=== PATIENT | male | born 1940 | race African-American/Black ===

== ENCOUNTER 2025-05-27 17:33 | Emergency (ER) | payer BC, OTHER ==
[~2025-05-27] VITALS: Ht 172.7 cm; Wt 75.0 kg
[2025-05-27 17:50] VITALS: PULSE 77; RESP 15; O2SAT 99
--- NOTE | 2025-05-27 19:20 | ED.PDOC ---
HPI (NEURO) HPI Comments 85-year-old came to the emergency department from long-term with a lethargy Chief Complaint: General Weakness Time Seen by MD: 17:43 Reviewed Notes: Nurses Notes, Regional Clinical Director Notes, Medications Information Source: Patient, Relative (Grand father) Mode of Arrival: EMS Severity: Moderate Dizziness/Weakness Severity: Bedridden, Unable to do activities Headache Severity: None Timing: Days Duration: Since onset Weakness Location: Generalized Onset: At rest Circumstances: Spontaneous Symptoms: Weakness, Difficulty walking Before: Lethargic After: Normal Mentation History of: Anemia, DM, Electrolyte Imbalance, Hypertension Modifying factors: Nothing Associated Signs and Symptoms: Fever, Altered Mental Status, Weakness, None Past Medical History PAST MEDICAL HISTORY: Anemia, Arthritis, DM, ESRD, HTN Past Medical History (Other): Chronic back pain Surgical History (Other): Fistula for renal failure Family History Family History: Reviewed,noncontributory to illness, No family hx of Cancer, No family hx of DM, No family hx of Heart terri, No family hx of HTN, No family hx ofKidney terri, No family hx of Liver terri, No family hx of Lung terri, No family hx of Stroke Social History Smoker: Non-Smoker Alcohol: Denies ETOH Use Drugs: Denies Drug Use Constitutional: reports: fever, weakness; denies: chills, diaphoresis, fatigue, malaise, sweats, others EENTM: denies: blurred vision, double vision, ear bleeding, ear discharge, ear drainage, ear pain, ear ringing, eye pain, eye redness, hearing loss, mouth pain, mouth swelling, nasal discharge, nose bleeding, nose congestion, nose pain, photophobia, tearing, throat pain, throat swelling, voice changes, others Respiratory: denies: cough, hemoptysis, orthopnea, SOB at rest, shortness of breath, SOB with excertion, stridor, wheezing, others Cardiovascular: denies: chest pain, dizzy spells, diaphoresis, Dyspnea on exertion, edema, irregular heart beat, left arm pain, lightheadedness, palpitations, PND, syncope, others Gastrointestinal: denies: abdomen distended, abdominal pain, blood streaked bowels, constipated, diarrhea, dysphagia, difficulty swallowing, hematemesis, melena, nausea, poor appetite, poor fluid intake, rectal bleeding, rectal pain, vomiting, others Genitourinary: denies: burning, dysuria, flank pain, frequency, hematuria, incontinence, penile discharge, penile sore, pain, testicle pain, testicle sw elling, urgency, others Neurological: denies: dizziness, fainting, headache, left sided numbness, left sided weakness, numbness, paresthesia, pre-existing deficit, right sided numbness, right sided weakness, seizure, speech problems, tingling, tremors, weakness, others Musculoskeletal: reports: back pain; denies: gout, joint pain, joint swelling, muscle pain, muscle stiffness, neck pain, others Integumetry: denies: bruises, change in color, change in hair/nails, dryness, laceration, lesions, lumps, rash, wounds, others Allergic/Immunocompromised: denies: Difficulty Healing, Frequent Infections, Hives, Itching, others Hematologic/Lymphatic: reports: anemia Psychiatric: denies: anxiety, bipolar disorder, depression, hopeless, panic dis order, schizophrenia, sleepless, suicidal, others All Other Systems: Reviewed and Negative Physical Exam General Appearance: Moderate Distress, Other (Lethargic) HEENT: Normal ENT Inspection, Pharynx Normal, TMs Normal Neck: Full Range of Motion, Non-Tender, Normal, Normal Inspection Respiratory: Chest Non-Tender, Lungs Clear, No Accessory Muscle Use, No Respiratory Distress, Normal Breath Sounds Cardiovascular: No Edema, No JVD, No Murmur, No Gallop, Normal Peripheral Pulses, Regular Rate/Rhythm Breast Exam: Deferred Gastrointestinal: No Organomegaly, Non Tender, No Pulsatile Mass, Normal Bowel Sounds, Soft Genitalia: Deferred Pelvic: Deferred Rectal: Deferred Extremities: No calf tenderness, Normal capillary refill, Normal inspection, N ormal range of motion, No pedal edema, Other (Fistula left arm) Musculoskeletal : Location: Left Extremity Location: Foot Apperance: Tenderness: Moderate, Other (Ischemic pain) Neurologic: Depressed Affect, Motor Weakness Cerebellar Function: NOT DONE Reflexes: NOT DONE Skin: Dry, Normal Color, Warm Peripheral Pulses: 1+ carotid (R), 1+ carotid (L) Lymphatic: No Adenopathy Was a procedure done? Was a procedure done?: No Differential Diagnosis (SZ) Seizure: Hypocalcemia, Hypoglycemia, Hyponatremia CVA: Electrolyte Imbalance General Weakness: Anemia, Dehydration, Electrolyte imbalance, Renal failure, Other (Possible urosepsis) Headache: N/A X-Ray, Labs, Meds, VS Vital Signs Date Time Temp Pulse Resp B/P (MAP) Pulse Ox O2 Delivery O2 Flow Rate FiO2 05/27/25 21:57 15 100 Room Air* 0 21 05/27/25 21:56 152/63 05/27/25 18:03 77 05/27/25 17:50 99.8 77 15 153/57 (89) 99 99.8 05/27/25 17:50 77 15 99 Room Air* 0 21 05/27/25 17:41 98.4 84 18 144/87 99 98.4 Lab Test 05/27/25 21:02 05/27/25 20:35 05/27/25 19:37 Range/Units Stool for White Cells Pending Urine Color Colorless Yellow Urine Clarity Clear Clear Urine pH 5.0 5.0-9.0 Urine Specific [place] 1.009 1.001-1.035 Urine Protein Negative Negative Urine Ketones Negative Negative Urine Blood Negative Negative /uL Urine Nitrite Negative Negative Urine Bilirubin Negative Negative Urine Urobilinogen Normal Negative mg/dL Urine Leukocyte Esterase Negative Negative /uL Urine RBC 1 0 - 3 /hpf Urine Microscopic WBC 2 0-3 /HPF Urine Squamous Epithelial Cells Few <5 /hpf Urine Amorphous Crystals Few None Seen /hpf Urine Bacteria None seen None Seen /hpf Urine Hyaline Casts Few 0 - 2 /lpf Urine Glucose Normal Normal mg/dL White Blood Count 6.5 4.4-10.8 10^3/uL Red Blood Count 2.94 L 4.5-5.90 10^6/uL Hemoglobin 8.5 L 13.5-17.5 g/dL Hematocrit 25.7 L 41.0-53.0 % Mean Corpuscular Volume 87.5 80.0-100.0 fL Mean Corpuscular Hemoglobin 28.8 28.0-32.0 pg Mean Corpuscular Hemoglobin Concent 32.9 32.0-36.0 g/dL Red Cell Distribution Width 14.6 H 11.8-14.3 % Platelet Count 210 140-450 10^3/uL Mean Platelet Volume 7.5 6.9-10.8 fL Neutrophils (%) (Auto) 60.3 37.0-80.0 % Lymphocytes (%) (Auto) 26.6 10.0-50.0 % Monocytes (%) (Auto) 9.5 0.0-12.0 % Eosinophils (%) (Auto) 2.6 0.0-7.0 % Basophils (%) (Auto) 1.0 0.0-2.0 % Neutrophils # (Auto) 3.9 1.6-8.6 10 ^3/uL Lymphocytes # (Auto) 1.7 0.4-5.4 10 ^3/uL Monocytes # (Auto) 0.6 0-1.3 10 ^3/uL Eosinophils # (Auto) 0.2 0-0.8 10 ^3/uL Basophils # (Auto) 0.1 0-0.2 10 ^3/uL Nucleated Red Blood Cells 0.1 % Sodium Level 141 136-145 mmol/L Potassium Level 5.8 *H 3.5-5.1 mmol/L Chloride Level 116 H 98-107 mmol/L Carbon Dioxide Level 13 L 20-31 mmol/L Anion Gap 12 5-15 Blood Urea Nitrogen 99 *H 9-23 mg/dL Creatinine 8.34 H 0.700-1.30 mg/dL Glomerular Filtration Rate Calc 6 >90 mL/min BUN/Creatinine Ratio 11.9 10.0-20.0 Serum Glucose 79 74-106 mg/dL Lactic Acid Level 0.6 0.4-2.0 mmol/L Calcium Level 8.5 L 8.7-10.4 mg/dL Magnesium Level 1.3 L 1.6-2.6 mg/dL Total Bilirubin 0.3 0.2-1.0 mg/dL Aspartate Amino Transferase (AST) < 8 L 13-40 U/L Alanine Aminotransferase (ALT) < 9 7-40 U/L Alkaline Phosphatase 70 46-116 U/L Troponin I High Sensitivity 29 </=54 ng/L Total Protein 6.2 5.7-8.2 g/dL Albumin 3.6 3.2-4.8 g/dL Plasma/Serum Blood Alcohol < 3.0 <10 mg/dL Current Medications Medications (Trade) Dose Ordered Sig/Naif Route Start Time Stop Time Status Last Admin Sodium Chloride 500 ml @ 500 mls/hr Q1H ONCE IVB 05/27/25 19:15 05/27/25 20:14 DC 05/27/25 19:22 Sodium Chloride 1,000 ml @ 150 mls/hr Q6H40M ONCE IV 05/27/25 19:15 05/28/25 01:54 05/27/25 19:22 Magnesium Sulfate/ Dextrose 100 ml @ 100 mls/hr Q1H IV 05/27/25 20:45 05/27/25 22:44 05/27/25 21:29 Calcium Gluconate/ Sodium Chloride 50 ml @ 100 mls/hr ONCE ONCE IV 05/27/25 21:15 05/27/25 21:44 DC 05/27/25 21:28 Sodium Bicarbonate 50 ml ONCE ONCE IV 05/27/25 21:15 05/27/25 21:16 DC 05/27/25 21:29 Sodium Bicarbonate 50 ml ONCE ONCE IV 05/27/25 21:45 05/27/25 21:50 DC 05/27/25 21:54 Zirconium Oxide (Lokelma) 10 gm ONCE ONCE PO 05/27/25 21:45 05/27/25 21:50 DC 05/27/25 21:54 Albuterol (Ventolin Medneb) 5 mg ONCE ONCE NEB 05/27/25 21:45 05/27/25 21:50 DC 05/27/25 21:57 Furosemide (Lasix Injection) 80 mg ONCE ONCE IV 05/27/25 21:45 05/27/25 21:50 DC 05/27/25 21:56 X-Ray, Labs, Meds, VS Comment Course in the emergency department eventful patient came in because of ge neralized weakness and lethargic Chest x-ray shows pulmonary vascular congestion EKG shows normal sinus rhythm 77 CBC 6500 with 60% neutrophils H&H 8.5 and 25.7 Blood alcohol less than three CMP potassium 5.8 BUN 99 creatinine 8.34 and GFR at six blood sugar 79 Lactic acid 0.6 Magnesium 1.3 Troponin 29 Patient will need dialysis admission Dr. Torres will admit Time of 1ST Reevaluation: 17:45 Reevaluation 1ST: Unchanged Time of 2ND Reevaluation: 21:36 Reevaluation 2ND: Unchanged Patient Education/Counseling: Diagnosis, Prognosis Family Education/Counseling: Diagnosis, Prognosis, Other (Daughter at bedside) Departure 1 Departure Time of Disposition: 20:37 Impression: Primary Impression: Acute renal failure Qualified Codes: N17.8 - Other acute kidney failure Additional Impressions: Anemia in chronic kidney disease Hyperkalemia Hypomagnesemia with secondary hypocalcemia Disposition: ADMITTED INPATIENT Admit to: Tele Condition: Guarded Critical Care Note Critical Care Time?: No Stability Stability form required: Yes Heart Score Heart Score: Heart Score Response (Comments) Value History N/A 0 EKG Normal 0 Age >65 2 Risk Factors >3 or Hx ASHD 2 Troponin Normal limit 0 Total 4 RUTH STODDARD MD May 27, 2025 19:20
[2025-05-27] MEDS: SODIUM CHLORIDE 0.9% 500 ML IVB ONE (19:22)
[2025-05-27] MEDS: SODIUM CHLORIDE 0.9% 1,000 ML IV ONE (19:22)
--- NOTE | 2025-05-27 19:32 | DVH ---
CHEST RADIOGRAPH Indication: Fever Technique: Single frontal view of the chest was obtained COMPARISON: None FINDINGS: Lines and Tubes: None Lungs: Increased interstitial prominence. This may represent pulmonary vascular congestion and/or vir al pneumonia. Pleura: No effusion. No pneumothorax. Cardiomediastinal contours: Unremarkable Bones: Unremarkable IMPRESSION: Increased interstitial prominence. This may represent pulmonary vascular congestion and/or viral pneumonia.
[2025-05-27 20:04] LABS: Albumin 3.6 g/dL (3.2-4.8); Alkaline Phosphatase 70 U/L (46-116); Anion Gap 12 (5-15); BUN/Creatinine Ratio 11.9 (10.0-20.0); Bilirubin, Total 0.3 mg/dL (0.2-1.0); Glucose 79 mg/dL (74-106); Sodium 141 mmol/L (136-145); Total Protein 6.2 g/dL (5.7-8.2)
[2025-05-27 20:07] LABS: Carbon Dioxide 13 mmol/L (20-31); Chloride 116 mmol/L (98-107)
[2025-05-27 20:08] LABS: Alanine Aminotransferase < 9 U/L (7-40); Calcium 8.5 mg/dL (8.7-10.4); Magnesium 1.3 mg/dL (1.6-2.6)
[2025-05-27 20:09] LABS: Hematocrit 25.7 % (41.0-53.0); Hemoglobin 8.5 g/dL (13.5-17.5); Mean Corpuscular Hemoglobin 28.8 pg (28.0-32.0); Mean Corpuscular Volume 87.5 fL (80.0-100.0); Nucleated Red Blood Cells % 0.1 %
[2025-05-27 20:10] LABS: Blood Urea Nitrogen 99 mg/dL (9-23); Potassium 5.8 mmol/L (3.5-5.1)
[2025-05-27 21:06] LABS: Urine Amorphous Crystal FEW /hpf (None Seen); Urine Protein, UAD Negative (Negative)
[2025-05-27] MEDS: CALCIUM GLUC 1,000mg/50ml-NS 50 ML IV ONE (21:28)
[2025-05-27] MEDS: SODIUM BICARB 8.4% 50Meq/50ml SYR Vial IV ONE ×2 (21:29→21:54)
[2025-05-27] MEDS: MAGNESIUM SULFATE 1GM/100ML 100 ML IV SCH (21:29)
[2025-05-27] MEDS: SODIUM ZIRCONIUM CYCL 10 GM PAK PO ONE (21:54)
[2025-05-27] MEDS: ALBUTEROL SULF 2.5 MG/0.5ML(0.5%) NEB SOLN ONE (21:56)
[2025-05-27] MEDS: FUROSEMIDE 100 MG/10ML VIAL IV ONE (21:56)
[2025-05-27] MEDS: ALBUTEROL SULF 2.5 MG/0.5ML(0.5%) NEB SOLN NEB ONE (21:57)
[2025-05-27] MEDS ORDERED: SODI10PA PO (22:57)
[2025-05-27] MEDS ORDERED: LIDO5DIS21 TOP (22:57)
[2025-05-27] MEDS ORDERED: MAGN400T40 PO (23:06)
[2025-05-28 01:39] LABS: Sodium 142 mmol/L (136-145)
[2025-05-28 01:40] LABS: Anion Gap 14 (5-15); Calcium 9.1 mg/dL (8.7-10.4)
[2025-05-28 01:42] LABS: Carbon Dioxide 13 mmol/L (20-31); Chloride 115 mmol/L (98-107); Potassium 5.3 mmol/L (3.5-5.1)
[2025-05-28 01:45] LABS: BUN/Creatinine Ratio 11.4 (10.0-20.0); Glucose 86 mg/dL (74-106)
[2025-05-28 01:51] LABS: Blood Urea Nitrogen 90 mg/dL (9-23)
[2025-05-28] MEDS: SODIUM BICARB 8.4% 50Meq/50ml SYR Vial IV ONE (02:00)
[2025-05-28] MEDS: FUROSEMIDE 40 MG/4 ML VIAL IV ONE (02:00)
[2025-05-28] MEDS: SODIUM ZIRCONIUM CYCL 10 GM PAK PO ONE (02:00)
[2025-05-28] MEDS: FUROSEMIDE 100 MG/10ML VIAL IV ONE (02:30)
--- NOTE | 2025-05-28 04:30 | ECG ---
[facility] Test Date: 2025-05-27 Test Time: 17:45:06 Pat Name: GERALDO FOSTER Department: [facility] ED Patient ID: [id number] Room: Gender: M [employer]: : 1940 Requested By: RUTH STODDARD Order Number: [id number] Reading MD: John Espinosa Measurements Intervals [place] Rate: 77 P: 33 NJ: 224 QRS: 31 QRSD: 93 T: 60 QT: 355 QTc: 402 Interpretive Statements Sinus rhythm Prolonged [place] interval Low voltage, precordial leads Electronically Signed On 05-28-2025 15:17:26 PDT by John Espinosa Please click the below link to view image of tracing.
[2025-05-28 05:29] LABS: Anion Gap 17 (5-15); Potassium 5.1 mmol/L (3.5-5.1); Sodium 145 mmol/L (136-145)
[2025-05-28 05:30] LABS: Calcium 8.8 mg/dL (8.7-10.4)
[2025-05-28 05:31] LABS: Carbon Dioxide 15 mmol/L (20-31); Chloride 113 mmol/L (98-107)
[2025-05-28 05:35] LABS: BUN/Creatinine Ratio 11.0 (10.0-20.0); Glucose 84 mg/dL (74-106)
[2025-05-28 05:41] LABS: Blood Urea Nitrogen 87 mg/dL (9-23)
[2025-05-28] MEDS ORDERED: SODIUM CHL 0.9% 1000 ML BAG XX ONE (07:00)
[2025-05-28 08:00] VITALS: BP 115/52; PULSE 76; RESP 14; TEMP 98.5; O2SAT 99
[2025-05-28] MEDS ORDERED: EPOETIN ALFA-EPBX 4,000 UNIT/ML VIAL SC ONE (21:00)
--- NOTE | 2025-05-30 23:44 | DVHINCON2 ---
DATE OF CONSULTATION: 05/28/2025 CHIEF COMPLAINT: Coming in for generalized weakness. HISTORY OF PRESENT ILLNESS: This is an 85-year-old male with a significant past medical history for CKD stage 5, essential hypertension, benign prostatic hypertrophy, hyperlipidemia, and neuropathy who presents to the Emergency Room with a chief complaint of fatigue and generalized weakness. The patient apparently has been dealing with chronic kidney disease stage 5 for a long time. He has been followed closely by his file drawer finisher, Dr. Whitten. He actually has left upper arm fistula placement that has matured that was placed 2 months ago in anticipation for initiation of dialysis. The patient says in the last few days he has had poor appetite, low energy, and feeling very lethargic. He is also complaining of some subjective fevers in the last day or two. No chills, no cough, no phlegm, felt a little bit nausea, but no vomiting. He denies any bloody or tarry stools. He denies any chest pain or shortness of breath, any orthopnea or no lower extremity edema. He typically uses a walker at his living facility complaining of right foot pain that he says is chronic in nature and the patient seems to be fully alert to self, time, place, and situation. PAST MEDICAL HISTORY: CKD stage 5, hypertension, BPH, hyperlipidemia, neuropathy. PAST SURGICAL HISTORY: Left upper arm fistula placement. SOCIAL HISTORY: No tobacco. No alcohol. No illicit drugs. MEDICATIONS AT HOME: Per medical reconciliation. MEDICATION ALLERGIES: No known drug allergies. REVIEW OF SYSTEMS: A 10-point review of systems was covered with the patient and was negative with exception to what was present in the history of present illness. PHYSICAL EXAMINATION: VITAL SIGNS: Temperature 98.4, pulse rate of 84, respiratory rate of 18, blood pressure 144/87, pulse ox about 99% on room air. GENERAL: Seems to be alert, self, time and place, in no acute distress, male lying in bed. HEENT: Normocephalic and atraumatic. Extraocular muscles are intact. Pupils are equally round and reactive to light and accommodation. Mucous membranes look moist. CARDIOVASCULAR: S1 and S2 positive. Regular rate and rhythm. No rubs, gallops or murmurs. LUNGS: Seems to be clear to auscultation bilaterally. No wheezing, rhonchi or rales. ABDOMEN: Seems to be soft, nontender, and nondistended. Positive bowel sounds. No guarding or rebound. EXTREMITIES: The patient does seem to have some tenderness of the left foot, specifically left large toe on touching. The area is not warm to touch. There are no wounds and there is no drainage from the site. The patient does have a little bit of trace edema of bilateral lower extremities. NEUROLOGIC: There are no focal deficits on examination. Cranial nerve testing 2-12 overall seems to be intact. LABORATORY WORKUP: White count 6.5, H and H of 8.5/25.7, platelet count 210,000, sodium 145, potassium of 5.8, chloride of 116, anion gap of 12, BUN of 99, creatinine of 8.34, serum glucose of 84, lactic acid 0.6, calcium of 8.8, magnesium of 1.3, AST of less than 8, ALT of less than 9. Urine was negative for nitrites, 1 rbc's, 2 wbc's, negative for leukocyte esterase. Blood cultures were sent out, no growth after 48 hours. C. diff was negative. IMAGING: Chest x-ray shows increased interstitial prominence. This may represent pulmonary vascular congestion and/or viral pneumonia. DIAGNOSES: * Hyperkalemia. * Diarrhea. * Hypomagnesemia. * Chronic back pain. PLAN: The patient was seen in the Emergency Room. Full assessment was completed. The patient does have a history of chronic kidney disease stage 5 with anticipation of end-stage renal disease with left upper arm fistula placement for anticipation of dialysis. The patient apparently has been developing symptoms of generalized weakness, fatigue, and anorexia. In the last few days, the patient does seem to be requiring dialysis. At this time, the patient's potassium was 5.8. The patient was aggressively treated with bicarb, calcium gluconate, and multiple doses of Lasix. The patient's potassium was eventually brought down to 5.1. The patient's blood urea nitrogen also down to 87. The patient overall feels improved. The patient's case was discussed with the [facility] who is seeing the patient and will adjust the patient's medication to add in Lokelma 10 g packets a day for his hyperkalemia. The patient is to have repeat lab testing on Wednesday and to follow up this week with the [facility] for dialysis to be arranged for this week. The patient also during his ER course did receive some magnesium replacement. The patient was again ordered some also magnesium oxide 400 mg p.o. daily. The patient's home torsemide medication was verified. The patient just recently picked up the prescription and has it at home. The patient was told to resume antidiuretic medication. The patient has been informed again to go to urgent care tomorrow for repeat blood testing. The patient is to return to the Emergency Room in case of any shortness of breath, chest pain, dizziness, fevers, chills, nausea, vomiting, or progression of his symptoms. The patient will be contacted for close evaluation by the [facility] who has been informed of the patient's ER visit. Duarte Gay MD LM/THIAGO TID: [id number] RECEIPT: [id number]
== END 2025-05-28 11:11 | disposition home or self-care (01) ==
LOC: EDBD 17:33 → ER 17:33
DX: N17.8 Other acute kidney failure (principal); I12.0 Hypertensive chronic kidney disease with stage 5 chronic kidney disease or end stage renal disease; E11.22 Type 2 diabetes mellitus with diabetic chronic kidney disease; N18.6 End stage renal disease; E87.5 Hyperkalemia; E83.51 Hypocalcemia; E83.42 Hypomagnesemia; E78.5 Hyperlipidemia, unspecified; M19.90 Unspecified osteoarthritis, unspecified site; N40.0 Benign prostatic hyperplasia without lower urinary tract symptoms; Z79.899 Other long term (current) drug therapy; Z74.01 Bed confinement status; Z99.2 Dependence on renal dialysis
CPT/HCPCS: 36415; 71045; 80048; 80053; 80320; 81001; 82947; 83605; 83735; 84484; 85025; 85048; 87040; 87493; 93005; 94640; 96361; 96365; 96366; 96375; 96376; 99285; J0613; J1938; J3475; J7030; J7040; 82962